=== PATIENT | female | born 1985 | race Hispanic/Latino ===

== ENCOUNTER 2018-05-15 15:52 | Inpatient (IN) | payer OTHER ==
[~2018-05-15] VITALS: Ht 160 cm; Wt 82.5 kg
[~2018-05-15 15:52] MED LIST: PERCOCET 5/325M1 TAB PO; ULTRAM50 M1 PO
[2018-05-15 16:43] LABS: HEMATOCRIT 32.1 % (37.0-47.0); HEMOGLOBIN 8.3 g/dl (12.0-16.0); IMMATURE GRANULOCYTES 0.3 % (0.0-5.0); MEAN CELL VOLUME 62.6 fL CALC (80.0-100.0); MEAN CORPUSCULAR HGB 16.2 pG CALC (26.0-32.0); MEAN CORPUSCULAR HGB CONC 25.9 g/L CALC (32.0-36.0); NEUT# 3.91 thou/uL (2.00-7.15); RED BLOOD COUNT 5.13 mill/uL (4.20-5.60); RED CELL DISTRI WIDTH 21.1 % (11.5-15.5)
[2018-05-15 16:56] LABS: ALBUMIN 4.3 g/dL (3.2-5.0); ALKALINE PHOSPHATASE 75 u/l (38-126); ANION GAP 14 (6-22 (CALC)); BILIRUBIN, TOTAL 2.1 mg/dL (0.0-1.4); BUN 14 mg/dL (7-17); BUN/CREATININE RATIO 17 (12-20 (CALC)); CARBON DIOXIDE 28 mmol/l (22-30); CHLORIDE 100 mmol/l (95-108); CREATININE 0.9 mg/dL (0.5-1.0); GFR > 60 ML/MIN (>=60 (CALC)); GFR FOR AFR.AMER. > 60 ML/MIN (>=60 (CALC)); SGOT/AST 40 u/l (14-36); SODIUM 139 mmol/l (137-146); TOTAL PROTEIN 7.5 g/dL (6.3-8.2)
[2018-05-15 16:57] LABS: POTASSIUM 2.7 mmol/l (3.5-5.1)
[2018-05-15 17:32] LABS: URINE BILIRUBIN - DIPSTICK NEGATIVE (NEGATIVE); URINE BLOOD DIPSTICK NEGATIVE (NEGATIVE); URINE COLOR YELLOW; URINE GLUCOSE - DIPSTICK NEGATIVE (NEGATIVE); URINE KETONE NEGATIVE (NEGATIVE); URINE LEUK ESTERASE NEGATIVE (NEGATIVE); URINE NITRITE - DIPSTICK NEGATIVE (Negative); URINE PH 6.5 (4.5-8.0); URINE PROTEIN - DIPSTICK 30 mg/dL (NEG-TRACE); URINE UROBILINOGEN - DIPSTICK 0.2 E.U./dL (0.2)
[2018-05-15 17:38] LABS: COCAINE NEGATIVE (NEGATIVE); TETRAHYDROCANNABIONOL NEGATIVE (NEGATIVE); URINE CLARITY CLEAR; URINE RBC 0-2 RBC/hpf (0-5); URINE SQUAMOUS EPITHELIAL CELL FEW EPI/hpf (0-FEW); URINE WBC 0-2 WBC/hpf (0-5)
[2018-05-15 17:39] LABS: BARBITURATES NEGATIVE (NEGATIVE); METHADONE NEGATIVE (NEGATIVE); OXCYCODONE NEGATIVE (NEGATIVE); TRICYLIC ANTIDEPRESSANTS NEGATIVE (NEGATIVE)
[2018-05-15 20:15] VITALS: BP 163/84
[2018-05-15 20:30] VITALS: BP 165/63
[2018-05-15 20:45] VITALS: BP 159/70
[2018-05-15 20:51] LABS: TSH, 3RD GENERATION 3.72 uIU/mL (0.47 - 4.68)
[2018-05-15 21:00] VITALS: BP 130/64
[2018-05-15 23:00] VITALS: BP 141/74
[2018-05-16] VITALS (20 sets, daily range): BP systolic 136–170; BP diastolic 62–105
[2018-05-16 05:23] LABS: HEMATOCRIT 30.9 % (37.0-47.0); HEMOGLOBIN 8.2 g/dl (12.0-16.0); IMMATURE GRANULOCYTES 0.3 % (0.0-5.0); MEAN CELL VOLUME 61.9 fL CALC (80.0-100.0); MEAN CORPUSCULAR HGB 16.4 pG CALC (26.0-32.0); MEAN CORPUSCULAR HGB CONC 26.5 g/L CALC (32.0-36.0); NEUT# 3.88 thou/uL (2.00-7.15); RED BLOOD COUNT 4.99 mill/uL (4.20-5.60); RED CELL DISTRI WIDTH 20.5 % (11.5-15.5)
[2018-05-16 05:47] LABS: ALKALINE PHOSPHATASE 66 u/l (38-126); ANION GAP 13 (6-22 (CALC)); BILIRUBIN, TOTAL 2.3 mg/dL (0.0-1.4); BUN 8 mg/dL (7-17); BUN/CREATININE RATIO 13 (12-20 (CALC)); CARBON DIOXIDE 27 mmol/l (22-30); CHLORIDE 101 mmol/l (95-108); CREATININE 0.6 mg/dL (0.5-1.0); GFR > 60 ML/MIN (>=60 (CALC)); GFR FOR AFR.AMER. > 60 ML/MIN (>=60 (CALC)); MAGNESIUM 1.6 mg/dL (1.6-2.3); POTASSIUM 2.9 mmol/l (3.5-5.1); SGOT/AST 28 u/l (14-36); SODIUM 138 mmol/l (137-146)
[2018-05-17] VITALS (21 sets, daily range): BP systolic 123–184; BP diastolic 58–110
[2018-05-17 05:18] LABS: HEMATOCRIT 30.5 % (37.0-47.0); HEMOGLOBIN 7.9 g/dl (12.0-16.0); IMMATURE GRANULOCYTES 0.2 % (0.0-5.0); MEAN CELL VOLUME 62.4 fL CALC (80.0-100.0); MEAN CORPUSCULAR HGB 16.2 pG CALC (26.0-32.0); MEAN CORPUSCULAR HGB CONC 25.9 g/L CALC (32.0-36.0); NEUT# 2.79 thou/uL (2.00-7.15); RED BLOOD COUNT 4.89 mill/uL (4.20-5.60); RED CELL DISTRI WIDTH 20.5 % (11.5-15.5)
[2018-05-17 05:31] LABS: ALBUMIN 3.5 g/dL (3.2-5.0); ALKALINE PHOSPHATASE 67 u/l (38-126); ANION GAP 9 (6-22 (CALC)); BILIRUBIN, TOTAL 1.7 mg/dL (0.0-1.4); BUN 9 mg/dL (7-17); BUN/CREATININE RATIO 14 (12-20 (CALC)); CARBON DIOXIDE 26 mmol/l (22-30); CHLORIDE 106 mmol/l (95-108); CREATININE 0.7 mg/dL (0.5-1.0); GFR > 60 ML/MIN (>=60 (CALC)); GFR FOR AFR.AMER. > 60 ML/MIN (>=60 (CALC)); MAGNESIUM 1.6 mg/dL (1.6-2.3); POTASSIUM 3.3 mmol/l (3.5-5.1); SGOT/AST 29 u/l (14-36); SODIUM 137 mmol/l (137-146); TOTAL PROTEIN 6.4 g/dL (6.3-8.2)
[2018-05-17 05:34] LABS: CHOLESTEROL HDL RATIO 3.2 (<4.4 (CALC))
[2018-05-18 01:00] VITALS: BP 152/73
[2018-05-18 03:00] VITALS: BP 133/65
[2018-05-18 05:00] VITALS: BP 165/84
[2018-05-18 06:02] LABS: ANION GAP 11 (6-22 (CALC)); BUN 12 mg/dL (7-17); BUN/CREATININE RATIO 17 (12-20 (CALC)); CARBON DIOXIDE 25 mmol/l (22-30); CHLORIDE 106 mmol/l (95-108); CREATININE 0.7 mg/dL (0.5-1.0); GFR > 60 ML/MIN (>=60 (CALC)); GFR FOR AFR.AMER. > 60 ML/MIN (>=60 (CALC)); MAGNESIUM 1.6 mg/dL (1.6-2.3); POTASSIUM 3.8 mmol/l (3.5-5.1); SODIUM 138 mmol/l (137-146)
[2018-05-18 06:08] LABS: HEMATOCRIT 32.2 % (37.0-47.0); HEMOGLOBIN 8.3 g/dl (12.0-16.0); MEAN CELL VOLUME 63.9 fL CALC (80.0-100.0); MEAN CORPUSCULAR HGB 16.5 pG CALC (26.0-32.0); MEAN CORPUSCULAR HGB CONC 25.8 g/L CALC (32.0-36.0); RED BLOOD COUNT 5.04 mill/uL (4.20-5.60); RED CELL DISTRI WIDTH 21.2 % (11.5-15.5)
[2018-05-18 07:00] VITALS: BP 157/86
[2018-05-18 10:00] VITALS: BP 150/83
[2018-05-18] MEDS ORDERED: FERR SULFATE325 MG PO (11:25)
[2018-05-18] MEDS ORDERED: LISINOPRIL20 M1 PO (11:25)
[2018-05-18] MEDS ORDERED: AMLODIPINE BESYL5 MG PO (11:25)
[2018-05-18 12:00] VITALS: BP 157/85
== END 2018-05-18 12:10 | disposition home or self-care (01) | DRG 305 ==
LOC: ED 15:52 → ED-I 17:48 → ED 18:01 → ICU 18:02
PROVIDERS: Emergency Medicine; Internal Medicine; ADMIT Internal Medicine Nephrology; ATTEND Internal Medicine Nephrology
DX: I16.1 Hypertensive emergency (principal); I10 Essential (primary) hypertension; E87.6 Hypokalemia; D50.9 Iron deficiency anemia, unspecified; N92.6 Irregular menstruation, unspecified; R80.9 Proteinuria, unspecified; E26.9 Hyperaldosteronism, unspecified; Z82.49 Family history of ischemic heart disease and other diseases of the circulatory system; Z23 Encounter for immunization
CPT/HCPCS: J1756; Q9967